=== PATIENT | female | born 1965 | race Caucasian/White ===

== ENCOUNTER → 2024-03-05 12:40 | Outpatient (REF) | payer BC, SELFPAY | LOC: HWWDC 12:40 | PROVIDERS: ATTENDING PHYSICIAN Registered Nurse | DX: Z12.31 Encounter for screening mammogram for malignant neoplasm of breast (principal) | CPT/HCPCS: 77063; 77067 ==

== ENCOUNTER → 2025-05-12 07:39 | Outpatient (REF) | payer BC, SELFPAY | LOC: HWWDC 07:39 | PROVIDERS: ATTENDING PHYSICIAN Registered Nurse; FAMILY PHYSICIAN Family Medicine | DX: Z12.31 Encounter for screening mammogram for malignant neoplasm of breast (principal) | CPT/HCPCS: 77063; 77067 ==